=== PATIENT | female | born 1995 | race Caucasian/White ===

== ENCOUNTER 2019-02-16 05:29 | Emergency (ER) | payer BC ==
[2019-02-16 06:52] LABS: HEMATOCRIT 39.5 % (32.4-45.2); HEMOGLOBIN 13.2 GM/dL (10.7-15.3); MCHC 33.3 g/dl (32.0-36.0); MEAN CELL VOLUME 93.1 fl (80-96); MEAN PLT VOLUME 7.9 fl (7.5-11.1); PLATELET COUNT 272 K/MM3 (134-434); RBC 4.25 M/mm3 (3.60-5.2); RDW 12.9 % (11.6-15.6); WHITE BLOOD COUNT 9.4 K/mm3 (4.0-10.0)
[2019-02-16 07:08] VITALS: BMI 23.1
[2019-02-16 07:22] LABS: ALBUMIN 4.9 g/dl (3.4-5.0); BILIRUBIN,TOTAL 0.6 mg/dL (0.2-1); BLOOD UREA NITROGEN 14.3 mg/dL (7-18); CALCIUM 9.1 mg/dL (8.5-10.1); CREATININE 0.7 mg/dL (0.55-1.3); POTASSIUM 4.2 mmol/L (3.5-5.1); TOT PROT 8.1 g/dl (6.4-8.2)
[2019-02-16] MEDS ORDERED: SODIUM CHLORIDE 1,000 ML IV STA (07:26)
[2019-02-16] MEDS ORDERED: ONDANSETRON 4 MG/2 ML VIAL IVPUSH ONE ×2 (07:28→09:42)
--- NOTE | 2019-02-16 07:33 | PDOC ---
History of Present Illness - General Chief Complaint: Pain Stated Complaint: VOMITING,ABD PAIN Time Seen by Provider: 02/16/19 07:20 History Source: Patient Exam Limitations: No Limitations - History of Present Illness Initial Comments: 02/16/19 07:28 Source: Patient HPI: 23yo F with PMH interstitial cystitis with nausea and vomiting since midnight. Pt reports nausea with multiple episodes of low volume emesis since midnight - with subjective fever and chills. Denies sick contact or unique foods. Hx of GERD / PUD - reporting that her pain feels similar to PUD pains. Loose stools over the last day, no constipation. Also with crampy abdominal pain she attributes to her period and suprapubic pain she attributes to her interstitial cystitis. RIBBON INKER: Known cysts, no fibroids / polyps, no abnormal PAP, Hx Herpes without active lesions. LMP: "This time last month" on BC All: NKDA Meds: Detrol, Estrogen BC, Flomax PMH: as above PSH: denies SHx: denies cigarettes, weekly ETOH, denies illicits Past History - Travel Traveled outside of the country in the last 30 days: No Close contact w/someone who was outside of country & ill: No - Past Medical History Allergies/Adverse Reactions: Allergies Allergy/AdvReac Type Severity Reaction Status Date / Time No Known Allergies Allergy Verified 02/16/19 06:17 Home Medications: Ambulatory Orders Cephalexin [Keflex] 500 mg PO TID 5 Days #15 capsule 02/16/19 COPD: No - Psycho Social/Smoking Cessation Hx Smoking History: Former smoker Have you smoked in the past 12 months: No Information on smoking cessation initiated: No Hx Alcohol Use: Yes Review of Systems - Review of Systems Able to Perform ROS?: Yes Is the patient limited [place] proficient: Yes Constitutional: Yes: Chills, Fever. No: Diaphoresis, Weakness HEENTM: No: Recent change in vision, Nose Congestion, Hearing Loss, Throat Pain Respiratory: No: Cough, Shortness of Breath, Wheezing Cardiac (ROS): No: Chest Pain, Edema, Irregular Heart Rate, Lightheadedness, Palpitations, Syncope, Chest Tightness ABD/GI: No: Constipated, Diarrhea : Yes: Pain (interstitial cystitis ). No: Burning, Dysuria, Discharge, Incontinence Musculoskeletal: No: Back Pain, Muscle Pain, Muscle Weakness Integumentary: No: Bruising, Change in Color, Pruritus, Rash Neurological: Yes: Headache (mild, associated with the vomiting). No: Numbness , Tingling, Weakness Psychiatric: No: Stressors, Change in Appetite Hematologic/Lymphatic: No: Anemia, Blood Clots, Easy Bleeding All Other Systems: Reviewed and Negative *Physical Exam - Vital Signs Last Vital Signs Temp Pulse Resp BP Pulse Ox 97.6 F 61 20 136/83 100 02/16/19 05:45 02/16/19 05:45 02/16/19 05:45 02/16/19 05:45 02/16/19 05:45 - Physical Exam Comments: 02/16/19 07:38 Vitals reviewed, AFVSS WDWN, appears stated age, no acute distress, actively vomiting at bedside MMM, EOMI, trachea midline, PERRLA RRR, nl s1s2, no murmurs appreciated CTABL, normal WOB, no wheezes / rales / rhonchi Soft, mild suprapubic tenderness, nondistended, no overlying scars / rashes or other skin changes, piercings without infectious signs No CVA tenderness WWP, no clubbing / cyanosis / edema, 2+ radial and PT pulses Alert and oriented, CN grossly intact, MAEE 02/16/19 10:10 SSE: normal external genitalia, normal mucosa without lesion, normal physiologic discharge, closed OS BME: no CMT, nontender, no adnexal fullness, no masses appreciated ED Treatment Course - LABORATORY CBC & Chemistry Diagram: 02/16/19 06:44 02/16/19 06:44 - ADDITIONAL ORDERS Additional order review: Laboratory Results 02/16/19 06:44 Sodium 139 Potassium 4.2 Chloride 107 Carbon Dioxide 24 Anion Gap 9 BUN 14.3 Creatinine 0.7 Est GFR (CKD-EPI)AfAm 143.54 Est GFR (CKD-EPI)NonAf 123.85 Random Glucose 128 H Calcium 9.1 Total Bilirubin 0.6 AST 14 L ALT 19 Alkaline Phosphatase 49 Total Protein 8.1 Albumin 4.9 02/16/19 06:44 RBC 4.25 MCV 93.1 MCHC 33.3 RDW 12.9 MPV 7.9 Medical Decision Making - Medical Decision Making 02/16/19 07:43 23yo F with PMH interstitial cystitis with nausea and vomiting since midnight with associated crampy lower abdominal pain. DDX: vs ectopic, UTI, Gastroenteritis, TOA, less likely appendicitis, colitis / IBS / IBD. Unlikely torsion given lack of laterally and history. -CBC, CMP, Lipase, -UA, UCx -IVF, Zofran 02/16/19 08:06 No leukocytosis or anemia Normal electrolytes, renal function, LFTs Negative test Lipase, Urine studies pending Glucose mildly elevated, no anion gap 02/16/19 08:29 -Patient remains nauseous despite zofran with continued abdominal discomfort 02/16/19 08:54 -Patient a frequent (daily) marijuana user, making hyperemesis syndrome a high possibility for her refractory nausea / vomiting with entirely normal labs, negative , normal lipase -Urine studies pending -Plan for EKG, Monitor, 2mg IV Haldol for nausea 02/16/19 09:50 -UA with UTI (positive nitrites, leuk esterase, bacteria) - treat with macrobid -Pelvic pending -Additional 1L NS, Zofran 4mg 02/16/19 09:56 -EKG with inverted T waves in V2, V3. QTc 435. Otherwise normal rate / rhythm / axis / morphologies. 02/16/19 10:09 -Exam not c/w pyelo, will obtain repeat EKG and give haldol as previously planned for antiemetic effects -Keflex 500mg given, sending RX to pharmacy 02/16/19 10:27 -Repeat EKG now with QT of 467, mildly increased from prior, will giving Haldol IV 02/16/19 12:34 -Administered 2mg Haldol IV over 4 minutes 02/16/19 12:52 -Patient responded well, no longer nauseous, tolerating PO water -Return precautions discussed, patient verbalized understanding -Keflex to pharmacy Dispo: Home Discharge - Discharge Information Problems reviewed: Yes Clinical Impression/Diagnosis: Cannabinoid hyperemesis syndrome Condition: Improved Disposition: HOME - Admission No - Additional Discharge Information Prescriptions: Cephalexin [Keflex] 500 mg PO TID 5 Days #15 capsule - Follow up/Referral CallBack Reminder: Call with U Culture Results - Patient Discharge Instructions Patient Printed Discharge Instructions: DI for Urinary Tract Infection (UTI) Additional Instructions: You were seen and evaluated in the ED. You were found to have a urinary tract infection and hyperemesis syndrome. Thank you for coming in. An antibiotic has been sent to your pharmacy. Please pick this up and take as directed. Continue to stay hydrated and take Tylenol as directed on the bottle for pain. Follow up with your primary care doctor in the next 1-2 days or if symptoms don' t resolve. Return to the ED for any new or concerning symptoms including but not limited to : inability to tolerate food or water by mouth, worsening abdominal pain non- responsive to pain medication, back pain with fevers and chills. - Post Discharge Activity
[2019-02-16] MEDS ORDERED: ACETAMINOPHEN 1000 MG/100 ML VIAL (NON FORMULARY) IVPB ONE (07:44)
[2019-02-16] MEDS ORDERED: ACETAMINOPHEN INJECTION 100 ML IVPB ONE (07:51)
[2019-02-16] MEDS ORDERED: ONDANSETRON 4 MG/2 ML VIAL ONE ×2 (07:51→09:46)
[2019-02-16] MEDS ORDERED: MAG HYDROX/AL HYDROX/SIMETH 30 ML UNIT-DOSE CUP PO ONE (08:33)
[2019-02-16] MEDS ORDERED: FAMOTIDINE 20 MG/50 ML IVPB 20 MG/50 ML MG IVPB ONE ×2 (08:33→09:15)
[2019-02-16 09:12] LABS: EPI CELLS 0.9 /HPF (0-5/HPF); HYALINE CASTS 14 /lpf (0-8); PH,URINE 7.5 (5.0-8.0); URINE APPEARANCE CLEAR; URINE BACTERIA 1629.3 /hpf (NEGATIVE); URINE BILIRUBIN NEGATIVE (NEGATIVE); URINE COLOR YELLOW; URINE GLUCOSE (UA) NEGATIVE (NEGATIVE); URINE KETONE 1+ (NEGATIVE); URINE LEUK ESTERASE TRACE (NEGATIVE); URINE NITRITE POSITIVE (NEGATIVE); URINE PROTEIN NEGATIVE (NEGATIVE); URINE RBC 1 /hpf (0-4); URINE UROBILINOGEN 0.2 mg/dL (0.2-1.0); URINE WBC 34 /hpf (0-5)
[2019-02-16] MEDS ORDERED: MAG HYDROX/AL HYDROX/SIMETH 30 ML UNIT-DOSE CUP ONE (09:12)
[2019-02-16] MEDS ORDERED: SODIUM CHLORIDE 0.9% 500 ML INFUS.BAG IV ONE (09:47)
[2019-02-16] MEDS ORDERED: CEPHALEXIN MONOHYDRATE 500 MG CAPSULE (UD) PO ONE (10:26)
[2019-02-16 10:28] VITALS: TEMP 98.2
[2019-02-16] MEDS ORDERED: HALOPERIDOL DECANOATE 500 MG/5ML MDV IM ONE (11:39)
[2019-02-16] MEDS ORDERED: HALOPERIDOL LACTATE 5 MG/ML ONE (12:04)
--- NOTE | 2019-02-16 12:13 | PDOC ---
Attending Attestation - Resident Resident Name: Zach Mahoney - ED Attending Attestation I have performed the following: I have examined & evaluated the patient, The case was reviewed & discussed with the resident, I agree w/resident's findings & plan, Exceptions are as noted - HPI HPI: 02/16/19 12:37 23-year-old female with a history of interstitial cystitis, C. difficile status post resolution with antibiotics 3 years ago, frequent marijuana smoker presents the emergency department with nausea and vomiting since midnight last night. She reports innumerable episodes of nonbloody and nonbilious emesis as well as subjective fever and chills. She reports suprapubic pain that she attributes to her interstitial cystitis, she denies any new abdominal pain since last night. She denies any dysuria, hematuria, urgency, frequency, flank pain. Denies abdominal surgery. Denies headache, dizziness, focal weakness or numbness, chest pain, shortness of breath, lower extremity edema or rashes. - Physicial Exam PE: 02/16/19 12:48 GENERAL: Awake, alert, and fully oriented, in no acute distress EYES: PERRLA, EOMI, sclera anicteric, conjunctiva clear ENT: Oropharynx clear without exudates. Moist mucosa NECK: Normal ROM, supple, no lymphadenopathy, JVD, or masses LUNGS: Breath sounds equal, clear to auscultation bilaterally. No wheezes, and no crackles HEART: Regular rate and rhythm, normal S1 and S2, no murmurs, rubs or gallops ABDOMEN: Soft, nontender, normoactive bowel sounds. No guarding, no rebound. No masses. No CVAT PELVIC: as per Dr. Mahoney's note EXTREMITIES: Normal range of motion, no edema. No cords, erythema, or tenderness NEUROLOGICAL: Normal speech, cranial nerves intact, equal strength and sensation b/l SKIN: Warm, Dry, normal turgor, no rashes or lesions noted. - Medical Decision Making 02/16/19 12:52 23yo F hx nausea and vomiting since last night. Differential includes pancreatitis versus gastroenteritis versus cannabinoid hyperemesis syndrome versus colitis. Vitals within normal limits Exam with benign abdomen on multiple checks by multiple providers, patient has no abdominal tenderness to palpation. Pelvic exam per Dr. Mahoney (chaperoned by Dr. Zaidi) within normal limits. Labs within normal limits Most likely cannabinoid hyperemesis. Despite multiple doses of Zofran, patient continues to have nausea and dry heaving in the emergency department. Multiple EKGs were performed to check QTC , which remained normal After she was placed on a monitor and storage bin tender, the patient was given Haldol 2 mg IV , push slowly with very good symptomatic response. Patient is tolerating p.o. Abdominal exam continues to be benign Discussed the possibility that her symptoms might be due to infrequent marijuana use, patient expresses understanding and will try to cut down on her marijuana use. She feels much better and is requesting discharge home I discussed the physical exam findings, ancillary test results and final diagnoses with the patient. I answered all of the patient's questions. The patient was satisfied with the care received and felt comfortable with the discharge plan and treatment plan. The patient will call their primary care physician within 24 hours to arrange follow-up and will return to the Emergency Department with any new, persistent or worsening symptoms. Heart Score/ECG Review #1 02/16/19 13:11 Twelve-lead EKG was performed and reviewed by me. Sinus bradycardia, rate 51. Normal axis. Sinus arrhythmia due to respiratory variation. QT is 435. Biphasic/inverted T waves in V2 and V3. No previous EKG to compare. #2 02/16/19 13:20 Twelve-lead EKG was performed and reviewed by me. Sinus bradycardia, rate 56. Normal axis. Sinus arrhythmia again seen due to respiratory variation. QT C is 447. T waves in V2 and V3 are again biphasic/inverted, but stable compared to last EKG.
--- NOTE | 2019-02-16 13:34 | EKG ---
Test Reason : Blood Pressure : / mmHG Vent. Rate : 056 BPM Atrial Rate : 056 BPM P-R Int : 184 ms QRS Dur : 092 ms QT Int : 464 ms P-R-T Axes : 074 073 054 degrees QTc Int : 447 ms SINUS BRADYCARDIA WITH MARKED SINUS ARRHYTHMIA OTHERWISE NORMAL ECG WHEN COMPARED WITH ECG OF 16-FEB-2019 09:27, NO SIGNIFICANT CHANGE WAS FOUND Confirmed by MEREDITH VEE, [place] ([id number]) on 02/16/2019 1:33:42 PM Referred By: Confirmed By:CHEYENNE HARPER MD
--- NOTE | 2019-02-16 13:34 | EKG ---
Test Reason : Blood Pressure : / mmHG Vent. Rate : 051 BPM Atrial Rate : 051 BPM P-R Int : 160 ms QRS Dur : 092 ms QT Int : 472 ms P-R-T Axes : 047 053 036 degrees QTc Int : 435 ms SINUS BRADYCARDIA WITH SINUS ARRHYTHMIA T WAVE ABNORMALITY, CONSIDER ANTERIOR ISCHEMIA ABNORMAL ECG NO PREVIOUS ECGS AVAILABLE Confirmed by CHEYENNE HARPER MD ([id number]) on 02/16/2019 1:34:01 PM Referred By: Confirmed By:CHEYENNE HARPER MD
[2019-02-16 13:40] VITALS: BP 110/51; PULSE 85
== END 2019-02-16 13:42 | disposition home or self-care (01) ==
LOC: JER 05:29
PROC: 3E0337Z Introduction of Electrolytic and Water Balance Substance into Peripheral Vein, Percutaneous Approach (ICD-10-PCS; principal; 2019-02-16)
PROC: 3E033GC Introduction of Other Therapeutic Substance into Peripheral Vein, Percutaneous Approach (ICD-10-PCS; 2019-02-16)
PROC: 3E033GC Introduction of Other Therapeutic Substance into Peripheral Vein, Percutaneous Approach (ICD-10-PCS; 2019-02-16)
PROC: 3E033NZ Introduction of Analgesics, Hypnotics, Sedatives into Peripheral Vein, Percutaneous Approach (ICD-10-PCS; 2019-02-16)
PROC: 3E023NZ Introduction of Analgesics, Hypnotics, Sedatives into Muscle, Percutaneous Approach (ICD-10-PCS; 2019-02-16)
DX: N39.0 Urinary tract infection, site not specified (principal); F12.988 Cannabis use, unspecified with other cannabis-induced disorder
CPT/HCPCS: 36415; 80053; 81003; 83690; 84703; 85027; 87086; 87186; 93005; 93010; 99284-25; J0131; J7030